=== PATIENT | female | born 1940 | race Caucasian/White ===

== ENCOUNTER 2020-09-21 16:54 | Emergency (ER) | payer MEDICARE, OTHER ==
[~2020-09-21 16:54] MED LIST: Iopamidol-370 76% 500 ML 1 ML ONE
[2020-09-21 18:45] LABS: #Basophils 0.1 thou/uL (0.0-0.2); #Eosinphils 0.2 thou/uL (0.0-0.7); #Lymphocytes 1.9 thou/uL (1.20-3.40); #Monocytes 0.9 thou/uL (0.11-0.59); #Neutrophils 4.6 thou/uL (1.40-6.50); %Basophils 1.1 % (0.0-1.0); %Lymphocytes 24.9 % (21.0-51.0); %Neutrophils 59.9 % (42.0-75.0); Hemoglobin 11.8 g/dL (12.0-16.0); Mean Corpuscular HGB CONC 31.7 g/dL (32.0-36.0); Mean Corpuscular Hemoglobin 26.9 pg (27.0-31.0); Mean Corpuscular Volume 84.8 fL (78.0-98.0); Mean Platelet Volume 6.5 fL (7.4-10.4); Platelet Count 389 thou/uL (130-400); RBC Distribution Width 14.4 % (11.5-14.5); Red Blood Cell (RBC) Count 4.37 mill/uL (4.20-5.40); White Blood Cell (WBC) Count 7.7 thou/uL (4.8-10.8)
[2020-09-21 18:53] LABS: INR-International Normal Ratio 0.9; PTT 30.9 sec (22.9-36.1); Prothrombin Time 12.8 sec (12.0-14.7)
[2020-09-21 19:00] LABS: ALT (SGPT) 7 U/L (8-55); AST (SGOT) 18 U/L (5-34); Albumin 3.6 g/dL (3.4-4.8); Alkaline Phosphatase 49 U/L (40-110); Anion Gap 12 mmol/L (10-20); BUN (Urea Nitrogen) 14 mg/dL (9.8-20.1); Bilirubin, Total 0.2 mg/dL (0.2-1.2); Calc. Creatinine Clearance 0 mL/min (70-130); Calcium 11.6 mg/dL (7.8-10.44); Carbon Dioxide 26 mmol/L (23-31); Chloride 102 mmol/L (98-107); Estimated GFR-MDRD 60; Globulin 3.2 g/dL (2.4-3.5); Glucose 92 mg/dL (83-110); Potassium 4.2 mmol/L (3.5-5.1); Protein, Total 6.8 g/dL (6.0-8.3); Sodium 136 mmol/L (136-145)
[2020-09-21 19:15] LABS: Bacteria/HPF 4+ HPF (None Seen); Bilirubin Negative (Negative); Blood, Urine 3+ (Negative); Clarity Turbid (Clear); Glucose, Urine (Dipstick) Normal (Negative); Ketone, Urine Negative (Negative); Leukocyte 500 Leu/uL (Negative); Nitrite Negative (Negative); Protein, Urine (Dipstick) Negative (Neg-Trace); RBC/HPF 21-50 HPF (0-3); Specific Gravity, Urine 1.005 (1.002-1.036); Squamous Epithelial 0-3 HPF (0-3); Urobilinogen Normal mg/dL (Less than 2); WBC/HPF Greater than 50 HPF (0-3)
[2020-09-21] MEDS ORDERED: cefTRIAXone\\ROCEPHIN 1 GM VIAL ONE (19:43)
--- NOTE | 2020-09-21 19:44 | CT ---
CT ABDOMEN WITH CONTRAST CT PELVIS WITH CONTRAST: DATE: 09/21/2020 HISTORY: 80-year-old female with abdominal pain and bloody diarrhea, plus dysuria and hematuria COMPARISON: 07/31/2020 TECHNIQUE: IV injection of iodinated contrast media: administered. Oral contrast media:Not administered FINDINGS: Moderate dilation of bilateral renal collecting systems and mild to moderate dilation of bilateral pr oximal and mid ureters. In the pelvis, there is severe streak artifact from bilateral total hip replacement arthroplasty meta llic hardware, making it very difficult to visualize the distal ureters and urinary bladder. 4 x 3 x 4 mm calculus remains at right renal lower pole calyx. Small posterior subcapsular hepatic segment 7 right lobe lesion approximately 1.5 cm, unchanged. Hypodense lesion at posterior inferior edge of hepatic segment 6 may represent focal scar. Punctate c alcifications. Unchanged. No portal vein thrombosis. No major pathology identified involving pancreas, adrenals,, or spleen. Appendix not identified with certainty. No small bowel dilation. No definite evidence of colonic diverticulitis, although portions of the sigmoid colon are obscured b y the streak artifact. Multilevel laminectomy defects and posterior onlay bone graft fusion of lumbar spine and lower thorac ic spine. Bilateral pedicle screws at lower thoracic spine and upper lumbar spine. Severe osteopenia. The bilateral pleural effusions demonstrated previously have resolved. No other interval change. IMPRESSION: 1) moderate bilateral hydroureteronephrosis, unchanged 2.) Nephrolithiasis consisting of a single right renal lower pole 4 mm calculus. Unchanged. 3) very limited evaluation of intrapelvic contents because of severe streak artifact from bilateral t otal hip replacement arthroplasty hardware. 4) other than the resolution of the previously demonstrated pleural effusions, there has been no sign ificant interval change.
[2020-09-21] MEDS ORDERED: Vancomycin 1 GM/200 ML BAG ONE (20:16)
== END 2020-09-21 21:53 | disposition home or self-care (01) ==
LOC: ERS 16:54
DX: K52.9 Noninfective gastroenteritis and colitis, unspecified (principal); N39.0 Urinary tract infection, site not specified; D64.9 Anemia, unspecified; K92.1 Melena; I48.91 Unspecified atrial fibrillation; E03.9 Hypothyroidism, unspecified; E78.5 Hyperlipidemia, unspecified; J44.9 Chronic obstructive pulmonary disease, unspecified; N18.9 Chronic kidney disease, unspecified; K21.9 Gastro-esophageal reflux disease without esophagitis; F03.90 Unspecified dementia, unspecified severity, without behavioral disturbance, psychotic disturbance, mood disturbance, and anxiety; Z79.899 Other long term (current) drug therapy; Z79.02 Long term (current) use of antithrombotics/antiplatelets
CPT/HCPCS: 36415; 74177; 80053; 81003; 81015; 85025; 85610; 85730; 86850; 86870; 86900; 86901; 86905; 86922; 87077; 87086; 87186; 87324; 87449; 96365; 96366; 96367; J0696; J3370; Q9967

== ENCOUNTER 2020-11-01 16:46 | Inpatient (IN) | payer MEDICARE ==
[2020-11-01] MEDS ORDERED: Morphine 4 MG/ML VIAL ONE (17:29)
[2020-11-01] MEDS ORDERED: Ondansetron PF 4 MG/2 ML Vial ONE (17:29)
[2020-11-01] MEDS ORDERED: Fentanyl 100 MCG/2 ML VIAL ONE ×2 (17:31→20:51)
[2020-11-01 18:01] LABS: ALT (SGPT) 11 U/L (8-55); AST (SGOT) 17 U/L (5-34); Albumin 3.8 g/dL (3.4-4.8); Alkaline Phosphatase 60 U/L (40-110); Anion Gap 16 mmol/L (10-20); BUN (Urea Nitrogen) 31 mg/dL (9.8-20.1); Bilirubin, Total 0.4 mg/dL (0.2-1.2); Calc. Creatinine Clearance 0 mL/min (70-130); Calcium 11.2 mg/dL (7.8-10.44); Carbon Dioxide 20 mmol/L (23-31); Chloride 105 mmol/L (98-107); Globulin 3.6 g/dL (2.4-3.5); Glucose 105 mg/dL (83-110); Lipase 21 U/L (8-78); Potassium 4.1 mmol/L (3.5-5.1); Protein, Total 7.4 g/dL (6.0-8.3); Sodium 137 mmol/L (136-145)
[2020-11-01 18:30] LABS: Bacteria/HPF 4+ HPF (None Seen); Bilirubin Negative (Negative); Blood, Urine 3+ (Negative); Clarity Extra Turbid (Clear); Glucose, Urine (Dipstick) Normal (Negative); Ketone, Urine Negative (Negative); Leukocyte 500 Leu/uL (Negative); Nitrite 2+ (Negative); Protein, Urine (Dipstick) 50 mg/dL (Neg-Trace); RBC/HPF Greater than 50 HPF (0-3); Specific Gravity, Urine 1.014 (1.002-1.036); Squamous Epithelial None Seen HPF (0-3); Urobilinogen Normal mg/dL (Less than 2); WBC/HPF Greater than 50 HPF (0-3)
[2020-11-01 19:19] LABS: #Eosinphils 0.1 thou/uL (0.0-0.7); #Lymphocytes 1.4 thou/uL (1.20-3.40); #Monocytes 1.1 thou/uL (0.11-0.59); #Neutrophils 14.8 thou/uL (1.40-6.50); %Basophils 0.2 % (0.0-1.0); %Eosinophils 0.6 % (0.0-10.0); %Lymphocytes 7.8 % (21.0-51.0); %Monocytes 6.3 % (0.0-10.0); %Neutrophils 85.2 % (42.0-75.0); Hemoglobin 11.4 g/dL (12.0-16.0); Mean Corpuscular HGB CONC 32.3 g/dL (32.0-36.0); Mean Corpuscular Hemoglobin 26.9 pg (27.0-31.0); Mean Corpuscular Volume 83.3 fL (78.0-98.0); Mean Platelet Volume 6.6 fL (7.4-10.4); Platelet Count 591 thou/uL (130-400); RBC Distribution Width 13.7 % (11.5-14.5); Red Blood Cell (RBC) Count 4.25 mill/uL (4.20-5.40); White Blood Cell (WBC) Count 17.4 thou/uL (4.8-10.8)
[2020-11-01] MEDS ORDERED: Acetaminophen 650 MG Suppository PR PRN (20:00)
[2020-11-01] MEDS ORDERED: Ondansetron ODT 4 MG TAB PO PRN (20:00)
[2020-11-01] MEDS ORDERED: Calcium Carbonate 500 MG ChewTAB PO PRN (20:00)
--- NOTE | 2020-11-01 20:04 | PDOC.HHP ---
Hospitalist HPI - History of Present Illness nause / vomting History of Present Illness: Case of an 80y/o female residential resident with a pmhx of dementia, htn, hypothyroidism, s/p ppm and hld who comes to hospital due to nausea vomiting and altered mental state. apparently patient was on her usuals state of health until today when while she was on her f/u appointment with her urologist. apparently s he started vomiting and with an altered stated for which she was brought to hospital for evaluation. patient states shes does not remember event, states she remembers going to see her doctor then now is on the hospital. of note patient with a recent admission with similar presentation that required vasoppresors and icu admission. patient was diagnosed with sepsis sescondary to uti and hospitalist was called for further evaluation and management. Hospitalist ROS - Review of Systems All other systems reviewed; all pertinent +/- noted in HPI/Subj Hospitalist History - Past Surgical History Past Surgical History: reports: no pertinent history - Family History Family History: reports: no pertinent history - Social History Smoking Status: Former smoker Alcohol: reports: None Drugs: reports: none Living Situation: Care Home - Exam General Appearance: NAD, awake alert Eye: PERRL, anicteric sclera ENT: normocephalic atraumatic, no oropharyngeal lesions Neck: supple, symmetric, no JVD Heart: RRR, no murmur, no gallops, no rubs Respiratory: CTAB, no wheezes, no rales Gastrointestinal: soft, non-tender, non-distended Extremities: no cyanosis, no clubbing Skin: normal turgor, no lesions Neurological: cranial nerve grossly intact, normal sensation to touch Musculoskeletal: normal tone, normal strength Psychiatric: normal affect, normal behavior, A&O x 3 Hospitalist Results - Labs Result Diagrams: 11/01/20 17:28 11/01/20 17:19 Lab results: WBC 17.4 thou/uL (4.8-10.8) H 11/01/20 17:28 Hgb 11.4 g/dL (12.0-16.0) L 11/01/20 17:28 Hct 35.4 % (36.0-47.0) L 11/01/20 17:28 MCV 83.3 fL (78.0-98.0) 11/01/20 17:28 Plt Count 591 thou/uL (130-400) H 11/01/20 17:28 Neutrophils % 85.2 % (42.0-75.0) H 11/01/20 17:28 Sodium 137 mmol/L (136-145) 11/01/20 17:19 Potassium 4.1 mmol/L (3.5-5.1) 11/01/20 17:19 Chloride 105 mmol/L (98-107) 11/01/20 17:19 Carbon Dioxide 20 mmol/L (23-31) L 11/01/20 17:19 BUN 31 mg/dL (9.8-20.1) H 11/01/20 17:19 Creatinine 1.51 mg/dL (0.6-1.1) H 11/01/20 17:19 Glucose 105 mg/dL (83-110) 11/01/20 17:19 Calcium 11.2 mg/dL (7.8-10.44) H 11/01/20 17:19 Total Bilirubin 0.4 mg/dL (0.2-1.2) 11/01/20 17:19 AST 17 U/L (5-34) 11/01/20 17:19 ALT 11 U/L (8-55) 11/01/20 17:19 Alkaline Phosphatase 60 U/L (40-110) 11/01/20 17:19 Troponin I 0.023 ng/mL (< 0.028) 11/01/20 17:22 Serum Total Protein 7.4 g/dL (6.0-8.3) 11/01/20 17:19 Albumin 3.8 g/dL (3.4-4.8) 11/01/20 17:19 Lipase 21 U/L (8-78) 11/01/20 17:19 Urine Ketones Negative mg/dL (Negative) 11/01/20 17:56 Urine Blood 3+ (Negative) A 11/01/20 17:56 Urine Nitrite 2+ (Negative) A 11/01/20 17:56 Ur Leukocyte Esterase 500 Lenard/uL (Negative) A 11/01/20 17:56 Urine RBC Greater than 50 HPF (0-3) A 11/01/20 17:56 Urine WBC Greater than 50 HPF (0-3) A 11/01/20 17:56 Ur Squamous Epith Cells None Seen HPF (0-3) 11/01/20 17:56 Urine Bacteria 4+ HPF (None Seen) A 11/01/20 17:56 Hospitalist H&P A/P - Problem (1) Sepsis Code(s): A41.9 - SEPSIS, UNSPECIFIED ORGANISM Status: Acute (2) UTI (urinary tract infection) Status: Acute (3) Hyperlipidemia Code(s): E78.5 - HYPERLIPIDEMIA, UNSPECIFIED Status: Acute (4) Hypertension Code(s): I10 - ESSENTIAL (PRIMARY) HYPERTENSION Status: Acute (5) Hypothyroid Code(s): E03.9 - HYPOTHYROIDISM, UNSPECIFIED Status: Chronic - Plan Plan: case of an 80y/o female that presents to hospital due to sepsis secondary to uti sepsis / uti - elevated wbc + tachycardia + altered mental state with a u/a consistent with uti - on levaquin iv - f/u cultures - last admission, recent, similar presentation grew pseudomona suceptible to current tx htn / hypothyroidism / hld - continue home meds
--- NOTE | 2020-11-01 20:38 | CT ---
HEAD CT WITHOUT CONTRAST: 11/01/20 COMPARISON: None. HISTORY: Altered mental status, vomiting. TECHNIQUE: Axial CT imaging at 5 mm intervals from vertex through the skull base without contrast. FINDINGS: There is encephalomalacia within the deep white matter in the right frontal region as well as the pos terior inferior right frontal and anterior right temporal lobe suggesting an old right MCA infarction . The imaged paranasal sinuses and mastoid air cells are well aerated. There is no displaced calvaria l fracture, intracranial hemorrhage, midline shift or mass effect. IMPRESSION: Evidence of prior right MCA infarction. No intracranial hemorrhage. If there is clinical concern for acute infarction, follow-up brain MRI advised. POS: ODALIS
--- NOTE | 2020-11-01 22:03 | CT ---
CT ABDOMEN AND PELVIS WITH IV CONTRAST: 11/01/20 PROVIDED CLINICAL HISTORY: Abdominal pain. FINDINGS: Comparison is made with the study dated 09/21/20. The visualized lung bases are free of significant opacity. Bilateral hydronephrosis and bilateral hydroureter are redemonstrated. The distal most ureters and ur inary bladder as well as the remainder of low pelvic contents are obscured by beam hardening artifact from bilateral hip arthroplasties. The solid abdominal organs demonstrate no significant interval ch jace with respect to prior. There is fluid density throughout the colon, which can be seen in the setting of diarrheal illness. T here is no evidence for bowel obstruction. The appendix is not distinctly identified, without seconda ry evidence for appendicitis. No inflammatory fat stranding, free fluid or free air apparent. The osseous structures demonstrate no concerning lytic or blastic lesions. Extensive spinal postopera tive changes are redemonstrated, stable compared with prior. IMPRESSION: 1. Bilateral hydroureteronephrosis is unchanged with respect to prior. 2. Fluid density within the colon, which can be seen in the setting of a diarrheal illness. POS: COLLETTE
--- NOTE | 2020-11-01 22:14 | RAD ---
PORTABLE CHEST: 11/01/20 PROVIDED CLINICAL HISTORY: Shortness of breath and vomiting. FINDINGS: Comparison 07/31/20. The cardiac and mediastinal silhouette is within normal limits. Atherosclerosis and left subclavian cardiac pacing device are demonstrated. No focal consolidation, pleural fluid or pneumothorax apparen t. IMPRESSION: No evidence for an acute cardiopulmonary process. POS: COLLETTE
[2020-11-02] MEDS: Fenofibrate 48 MG TAB PO SCH ×2 (00:14→21:31)
[2020-11-02] MEDS: Atorvastatin Calcium 40 MG TAB PO SCH ×2 (00:14→21:31)
[2020-11-02 04:19] LABS: Band 1 % (5-11); Hypochromia SLIGHT = 6-15 cells (100X) (0-5/hpf); Lymphocytes 10 % (21-51); MDiff Complete? YES; Mean Corpuscular HGB CONC 32.7 g/dL (32.0-36.0); Mean Corpuscular Hemoglobin 27.2 pg (27.0-31.0); Mean Corpuscular Volume 83.1 fL (78.0-98.0); Mean Platelet Volume 6.6 fL (7.4-10.4); Monocytes 2 % (0-10); Neutrophil 86 % (42-75); Platelet Count 452 thou/uL (130-400); Platelet Morphology Comment Appears Increased; RBC Distribution Width 13.7 % (11.5-14.5); Reactive Lymphocytes 1 % (0-10); Red Blood Cell (RBC) Count 3.68 mill/uL (4.20-5.40); White Blood Cell (WBC) Count 18.1 thou/uL (4.8-10.8)
[2020-11-02 04:23] LABS: ALT (SGPT) 13 U/L (8-55); AST (SGOT) 37 U/L (5-34); Albumin 2.7 g/dL (3.4-4.8); Alkaline Phosphatase 45 U/L (40-110); Anion Gap 18 mmol/L (10-20); BUN (Urea Nitrogen) 22 mg/dL (9.8-20.1); Bilirubin, Total 0.5 mg/dL (0.2-1.2); Calc. Creatinine Clearance 0 mL/min (70-130); Carbon Dioxide 10 mmol/L (23-31); Chloride 113 mmol/L (98-107); Globulin 3.5 g/dL (2.4-3.5); Glucose 84 mg/dL (83-110); Potassium 4.1 mmol/L (3.5-5.1); Protein, Total 6.2 g/dL (6.0-8.3); Sodium 137 mmol/L (136-145)
[2020-11-02 04:26] VITALS: BMI 21.2
--- NOTE | 2020-11-02 08:52 | PDOC.HOSPP ---
- Subjective Encounter Date: 11/02/20 Encounter Time: 08:40 Subjective: f/u for UTI/Sepsis on current Levaquin. Ucx pending and nursing reports pt stable overnight. Pt states feeling better overall and less confused. - Objective Vital Signs & Weight: Vital Signs (12 hours) Temp Pulse Resp BP BP Pulse Ox 11/02/20 03:54 98.9 F 95 14 116/56 L 96 11/02/20 03:18 96 11/01/20 23:56 99.9 F H 116 H 16 111/55 L 96 11/01/20 22:15 98.4 F 102 H 22 H 143/61 H 98 Weight Weight 124 lb I&O: 11/01/20 11/02/20 11/03/20 06:59 06:59 06:59 Intake Total 240 Output Total 300 Balance -60 Result Diagrams: 11/02/20 03:52 11/02/20 03:52 Additional Labs: Microbiology 11/01/20 20:15 Venous blood - Left Hand Blood Culture - Preliminary Specimen has been received and culture in progress. No Growth to date. 11/01/20 20:02 Venous blood - Left Arm Blood Culture - Preliminary Specimen has been received and culture in progress. No Growth to date. Laboratory Tests 11/01/20 11/01/20 17:19 17:28 WBC 17.4 H Hgb 11.4 L BUN 31 H Creatinine 1.51 H Calcium 11.2 H Radiology Reviewed by me: Yes (CT abd/pel - bilat hydroureteronephrosis(chronic)) Hospitalist ROS - Medication Medications: Active Medications Generic Name Dose Route Start Last Admin Trade Name Freq PRN Reason Stop Dose Admin Atorvastatin Calcium 40 mg 11/01/20 21:00 11/02/20 00:14 Atorvastatin Calcium 40 Mg Tab PO 40 mg HS REGINA Administration Fenofibrate 48 mg 11/01/20 21:00 11/02/20 00:14 Fenofibrate 48 Mg Tab PO 48 mg HS REGINA Administration - Exam General Appearance: NAD, awake alert Eye: PERRL, anicteric sclera ENT: normocephalic atraumatic, no oropharyngeal lesions Neck: supple, symmetric, no JVD, no thyromegaly, no lymphadenopathy Heart: RRR, no gallops, no rubs, normal peripheral pulses Heart - other findings: S1, S2 Respiratory: CTAB, no wheezes, no rales, no ronchi, normal chest expansion, no tachypnea Gastrointestinal: soft, non-tender, non-distended, normal bowel sounds, no palpable masses Extremities: no cyanosis, no clubbing, no edema Skin: normal turgor, no lesions Neurological: cranial nerve grossly intact, no new deficit Musculoskeletal: normal tone, generalized weakness Psychiatric: normal affect, A&O x 3 Hosp A/P (1) Sepsis due to urinary tract infection Code(s): A41.9 - SEPSIS, UNSPECIFIED ORGANISM; N39.0 - URINARY TRACT INFECTION, SITE NOT SPECIFIED Status: Acute Plan: Continue Levaquin, add Rocephin pending final Ucx results, continue IVF's (2) HANNA (acute kidney injury) Code(s): N17.9 - ACUTE KIDNEY FAILURE, UNSPECIFIED Status: Acute Plan: Improved, continue IVF's, avoid nephrotoxic meds and limit contrast (3) Acute metabolic encephalopathy Code(s): G93.41 - METABOLIC ENCEPHALOPATHY Status: Acute Plan: Secondary to #1, continue mgmt as outlined above (4) Hypercalcemia Code(s): E83.52 - HYPERCALCEMIA Status: Acute Plan: Improved, continue IVF's, serial Ca++ monitoring (5) Hypothyroid Code(s): E03.9 - HYPOTHYROIDISM, UNSPECIFIED Status: Chronic - 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
[2020-11-02] MEDS ORDERED: Bisacodyl 10 MG SUPP PR PRN (08:56)
[2020-11-02] MEDS ORDERED: Benzonatate 100 MG CAP PO PRN (08:56)
[2020-11-02] MEDS ORDERED: LIDOCAINE TOP SCH (09:00)
[2020-11-02] MEDS: Sodium Chloride 0.9% 1,000 ML IV SCH ×2 (09:33→19:19)
[2020-11-02] MEDS: Clopidogrel Bisulfate 75 MG TAB PO SCH (09:40)
[2020-11-02] MEDS: Lactinex Tablet PO SCH (09:40)
[2020-11-02] MEDS: Enoxaparin Sodium 40 MG/0.4 ML SYRINGE SC SCH (09:40)
[2020-11-02] MEDS: Magnesium Oxide 400 MG TAB PO SCH ×2 (09:40→21:30)
[2020-11-02] MEDS: Escitalopram Oxalate 10 mg Tablet PO SCH (09:40)
[2020-11-02] MEDS: cefTRIAXone\\ROCEPHIN 2 GM in Sodium Chloride 0.9% 100 ML IVPB SCH (09:40)
[2020-11-02] MEDS: Cholecalciferol 1,000 UNITS (25 MCG) TAB PO SCH (09:52)
[2020-11-02] MEDS: Stress 600 With Zinc 1 TAB PO SCH (09:56)
[2020-11-02] MEDS: Gabapentin 300 MG CAP PO SCH ×2 (10:06→21:30)
[2020-11-02 12:52] LABS: SARS-CoV-2 MS2 Positive; SARS-CoV-2 N Gene Negative; SARS-CoV-2 S Gene Negative; SARS-CoV-2 by NAA Not Detected (NotDetected); SARS-CoV-2 orf1ab Negative
[2020-11-02] MEDS: Zinc Oxide 20% Oint 30 GM TUBE TOP SCH ×2 (14:00→21:31)
[2020-11-02] MEDS: Meloxicam 15 MG TAB PO SCH (14:14)
--- NOTE | 2020-11-02 15:21 | CON ---
DATE OF CONSULTATION: REASON FOR CONSULT: Hydronephrosis. CHIEF COMPLAINT: Vomiting. HISTORY OF PRESENT ILLNESS: This is an 80-year-old female, well known to me. She has a history of recurrent urinary tract infections, urinary retention with hydronephrosis secondary to this. She is currently staying at a nursing facility. Over the past several months, we have had problems with her wanting to have her catheter removed. It being removed and then her ending up with infections, retention, hydronephrosis. She was seen in my office yesterday after she reportedly developed a single episode of gross hematuria. She was not having any hematuria yesterday. Our bladder scan suggested that she was emptying well with 79 mL residual. She was having active vomiting, however, and I recommended that she be sent to the emergency room. Urine culture had been checked earlier in the week, but results were not yet available. In the emergency room, she was evaluated and noted to have urinary tract infection and a CT shows bilateral hydronephrosis. In speaking with her today, she tells me that she is feeling much better. She denies suprapubic pain, flank pain, nausea, fevers. REVIEW OF SYSTEMS: 12-point review of systems is performed, negative except as mentioned in my HPI. PAST MEDICAL HISTORY: Dementia, hypertension, hypothyroidism. PAST SURGICAL HISTORY: No prior urologic surgeries. FAMILY HISTORY: Reviewed, noncontributory. SOCIAL HISTORY: Former smoker. No substance abuse. ALLERGIES: REVIEWED. PERTINENT ALLERGIES ARE DOXYCYCLINE, PENICILLIN, SULFADIAZINE. LABORATORY DATA: White count 18.1, 17.4 yesterday. Creatinine 1.06 today, down from 1.51 yesterday. Urinalysis, positive nitrite and leukocyte esterase. COVID negative. Urine culture, presumptive Klebsiella/Enterobacter. I personally reviewed her CT scan, which does show bilateral hydronephrosis and appears to show a distended bladder. However, it is mostly obstructed by her bilateral hip prosthetics. ASSESSMENT AND PLAN: Urinary retention, urinary tract infection, bilateral hydronephrosis. Miller catheter was placed at my direction earlier today. She will need this likely long term. I would not recommend this be removed again. I agree with Rocephin and Levaquin for now while we await urine susceptibilities. As long as her creatinine remains improved with the Miller catheter, I do not think there is any issue with bilateral hydronephrosis. Further corroborating my impression is that she has previously developed hydronephrosis with retention, which promptly resolved with catheter placement. Job ID: [id number]
[2020-11-02] MEDS: Potassium Chloride 20 MEQ TAB PO SCH (17:00)
[2020-11-02] MEDS: Diphenoxylate HCl/Atropine Tablet PO PRN (17:03)
[2020-11-02] MEDS: Acetaminophen 325 MG TAB PO PRN (17:04)
[2020-11-02] MEDS ORDERED: Polyvinyl Alcohol 1.4%/Povidone 0.6% Opth Drops EA EYE SCH (21:00)
[2020-11-03] MEDS: Sodium Chloride 0.9% 1,000 ML IV SCH ×3 (00:11→13:32)
[2020-11-03] MEDS ORDERED: Artificial Tear Sol 15 ML BOT EA EYE SCH (00:15)
[2020-11-03] MEDS: Methocarbamol 500 MG TAB PO PRN (02:52)
[2020-11-03] MEDS: Liothyronine Sodium 5 MCG TAB PO SCH (06:11)
[2020-11-03] MEDS: Levothyroxine Sodium 25 MCG TAB PO SCH (06:11)
[2020-11-03] MEDS: Zinc Oxide 20% Oint 30 GM TUBE TOP SCH ×3 (06:12→20:39)
[2020-11-03 06:42] LABS: #Basophils 0.1 thou/uL (0.0-0.2); #Eosinphils 0.1 thou/uL (0.0-0.7); #Lymphocytes 1.2 thou/uL (1.20-3.40); #Monocytes 0.9 thou/uL (0.11-0.59); #Neutrophils 6.9 thou/uL (1.40-6.50); %Basophils 0.7 % (0.0-1.0); %Eosinophils 0.7 % (0.0-10.0); %Lymphocytes 12.9 % (21.0-51.0); %Monocytes 10.2 % (0.0-10.0); %Neutrophils 75.5 % (42.0-75.0); Hemoglobin 8.3 g/dL (12.0-16.0); Mean Corpuscular HGB CONC 32.2 g/dL (32.0-36.0); Mean Corpuscular Hemoglobin 26.6 pg (27.0-31.0); Mean Corpuscular Volume 82.4 fL (78.0-98.0); Mean Platelet Volume 6.3 fL (7.4-10.4); Platelet Count 422 thou/uL (130-400); RBC Distribution Width 13.5 % (11.5-14.5); Red Blood Cell (RBC) Count 3.12 mill/uL (4.20-5.40); White Blood Cell (WBC) Count 9.1 thou/uL (4.8-10.8)
[2020-11-03 07:01] LABS: Anion Gap 14 mmol/L (10-20); BUN (Urea Nitrogen) 12 mg/dL (9.8-20.1); Calc. Creatinine Clearance 53 mL/min (70-130); Calcium 9.8 mg/dL (7.8-10.44); Carbon Dioxide 16 mmol/L (23-31); Chloride 112 mmol/L (98-107); Glucose 86 mg/dL (83-110); Sodium 139 mmol/L (136-145)
[2020-11-03 07:09] LABS: Potassium 2.7 mmol/L (3.5-5.1)
[2020-11-03] MEDS ORDERED: Potassium Chloride 20 MEQ TAB PO SCH (08:45)
[2020-11-03] MEDS: Acetaminophen 325 MG TAB PO PRN (08:57)
[2020-11-03] MEDS: Meloxicam 15 MG TAB PO SCH (08:58)
[2020-11-03] MEDS: Artificial Tear Sol 15 ML BOT EA EYE SCH ×2 (09:39→20:38)
[2020-11-03] MEDS: Enoxaparin Sodium 40 MG/0.4 ML SYRINGE SC SCH (09:39)
[2020-11-03] MEDS: Potassium Chloride 20 MEQ TAB PO SCH ×2 (09:40→17:45)
[2020-11-03] MEDS: Stress 600 With Zinc 1 TAB PO SCH (09:40)
[2020-11-03] MEDS: Gabapentin 300 MG CAP PO SCH ×2 (09:40→20:37)
[2020-11-03] MEDS: Escitalopram Oxalate 10 mg Tablet PO SCH (09:41)
[2020-11-03] MEDS: Clopidogrel Bisulfate 75 MG TAB PO SCH (09:41)
[2020-11-03] MEDS: Cholecalciferol 1,000 UNITS (25 MCG) TAB PO SCH (09:41)
[2020-11-03] MEDS: Magnesium Oxide 400 MG TAB PO SCH ×2 (09:42→20:38)
[2020-11-03] MEDS: Lactinex Tablet PO SCH (09:43)
[2020-11-03] MEDS: cefTRIAXone\\ROCEPHIN 2 GM in Sodium Chloride 0.9% 100 ML IVPB SCH (10:52)
--- NOTE | 2020-11-03 11:56 | PDOC.HOSPP ---
- Subjective Encounter Date: 11/03/20 Encounter Time: 11:45 Subjective: f/u for UTI/sepsis with Klebsiella spp isolated receiving Levaquin/Rocephin. Overall feels better. Nursing reports K+ 2.7 today. - Objective Vital Signs & Weight: Vital Signs (12 hours) Temp Pulse Resp BP BP Pulse Ox 11/03/20 08:00 99.2 F 74 20 125/65 97 11/03/20 04:00 99.5 F 90 20 119/55 L 94 L Weight Weight 124 lb I&O: 11/02/20 11/03/20 11/04/20 06:59 06:59 06:59 Intake Total 240 200 Output Total 300 700 Balance -60 -500 Result Diagrams: 11/03/20 06:24 11/03/20 06:24 Additional Labs: Microbiology 11/02/20 19:48 Stool C. difficile GDH Antigen & Toxins - Final 11/01/20 20:15 Venous blood - Left Hand Blood Culture - Preliminary Specimen has been received and culture in progress. No Growth to date. 11/01/20 20:02 Venous blood - Left Arm Blood Culture - Preliminary Specimen has been received and culture in progress. No Growth to date. 11/01/20 17:56 Urine Straight Catheter Urine Culture - Preliminary Klebsiella pneumoniae ssp pneu Laboratory Tests 11/01/20 11/01/20 11/02/20 17:19 17:28 03:52 WBC 17.4 H Hgb 11.4 L Potassium 4.1 BUN 31 H Creatinine 1.51 H 1.06 Calcium 11.2 H SARS-CoV-2 (PCR) 11/02/20 11/02/20 03:52 06:35 WBC 18.1 H Hgb 10.0 L Potassium BUN Creatinine Calcium SARS-CoV-2 (PCR) Not Detected Hospitalist ROS - Medication Medications: Active Medications Generic Name Dose Route Start Last Admin Trade Name Freq PRN Reason Stop Dose Admin Acetaminophen 650 mg 11/01/20 20:00 11/03/20 08:57 Acetaminophen 325 Mg Tab PO 650 mg Q4H PRN Administration Headache/Fever/Mild Pain (1-3) Acidophilus 1 tab 11/02/20 09:00 11/03/20 09:43 Lactinex Tablet PO 1 tab DAILY REGINA Administration Artificial Tears 0 drop 11/03/20 09:00 11/03/20 09:39 Artificial Tear Marley 15 Ml Bot EA EYE 1 drp BID REGINA Administration Atorvastatin Calcium 40 mg 11/01/20 21:00 11/02/20 21:31 Atorvastatin Calcium 40 Mg Tab PO 40 mg HS REGINA Administration Cholecalciferol 5,000 units 11/02/20 09:00 11/03/20 09:41 Cholecalciferol 1,000 Units (25 Mcg) Tab PO 5,000 units DAILY REGINA Administration Clopidogrel Bisulfate 75 mg 11/02/20 09:00 11/03/20 09:41 Clopidogrel Bisulfate 75 Mg Tab PO 75 mg DAILY REGINA Administration Diphenoxylate HCl/Atropine 1 tab 11/02/20 08:56 11/02/20 17:03 Diphenoxylate Hcl/Atropine Tablet PO 1 tab QID PRN Administration Diarrhea/Loose Stools Enoxaparin Sodium 40 mg 11/02/20 09:00 11/03/20 09:39 Enoxaparin Sodium 40 Mg/0.4 Ml Syringe SC 40 mg 0900 REGINA Administration Escitalopram Oxalate 10 mg 11/02/20 09:00 11/03/20 09:41 Escitalopram Oxalate 10 Mg Tablet PO 10 mg DAILY REGINA Administration Fenofibrate 48 mg 11/01/20 21:00 11/02/20 21:31 Fenofibrate 48 Mg Tab PO 48 mg HS REGINA Administration Gabapentin 600 mg 11/02/20 09:00 11/03/20 09:40 Gabapentin 300 Mg Cap PO 600 mg BID REGINA Administration Sodium Chloride 1,000 mls @ 100 mls/hr 11/02/20 09:00 11/03/20 10:36 Normal Saline 0.9% IV 1,000 mls .Q10H REGINA Administration Ceftriaxone Sodium 2 gm/ 100 mls @ 200 mls/hr 11/02/20 10:00 11/03/20 10:52 Sodium Chloride IVPB 100 mls 1000 REGINA Administration Isosorbide Mononitrate 15 mg 11/02/20 09:00 11/03/20 09:42 Isosorbide Mononitrate Er 30 Mg Tab PO 15 mg DAILY REGINA Administration Levothyroxine Sodium 25 mcg 11/03/20 06:00 11/03/20 06:11 Levothyroxine Sodium 25 Mcg Tab PO 25 mcg 0600 REGINA Administration Liothyronine Sodium 5 mcg 11/03/20 06:00 01/01/21 06:11 Liothyronine Sodium 5 Mcg Tab PO 5 mcg 0600 REGINA Administration Magnesium Oxide 400 mg 11/02/20 09:00 11/03/20 09:42 Magnesium Oxide 400 Mg Tab PO 400 mg BID REGINA Administration Meloxicam 15 mg 11/02/20 09:00 11/03/20 08:58 Meloxicam 15 Mg Tab PO 15 mg DAILY REGINA Administration Methocarbamol 750 mg 11/02/20 09:22 11/03/20 02:52 Methocarbamol 500 Mg Tab PO 750 mg Q8H PRN Administration Muscle Pain Multivitamins/Zinc 1 tab 11/02/20 09:00 11/03/20 09:40 Stress 600 With Zinc 1 Tab PO 1 tab DAILY REGINA Administration Potassium Chloride 20 meq 11/02/20 17:00 11/03/20 09:40 Potassium Chloride 20 Meq Tab PO 20 meq BID-WM REGINA Administration Zinc Oxide 0 gm 11/02/20 14:00 11/03/20 06:12 Zinc Oxide 20% Oint 30 Gm Tube TOP 1 applic Q8HR REGINA Administration - Exam General Appearance: NAD, awake alert Eye: PERRL, anicteric sclera ENT: normocephalic atraumatic, no oropharyngeal lesions Neck: supple, symmetric, no JVD, no thyromegaly, no lymphadenopathy Heart: RRR, no gallops, no rubs, normal peripheral pulses Heart - other findings: S1, S2 Respiratory: CTAB, no wheezes, no rales, no ronchi, normal chest expansion, no tachypnea Gastrointestinal: soft, non-tender, non-distended, normal bowel sounds, no palpable masses Extremities: no cyanosis, no clubbing, no edema Skin: normal turgor, no lesions Neurological: cranial nerve grossly intact, no new deficit Musculoskeletal: normal tone, generalized weakness Psychiatric: normal affect, A&O x 3 Hosp A/P (1) Sepsis due to urinary tract infection Code(s): A41.9 - SEPSIS, UNSPECIFIED ORGANISM; N39.0 - URINARY TRACT INFECTION, SITE NOT SPECIFIED Status: Acute Plan: Resolving, continue Levaquin for Klebsiella spp UTI (2) HANNA (acute kidney injury) Code(s): N17.9 - ACUTE KIDNEY FAILURE, UNSPECIFIED Status: Acute Plan: Resolving, avoid nephrotoxic meds and limit contrast (3) Acute metabolic encephalopathy Code(s): G93.41 - METABOLIC ENCEPHALOPATHY Status: Acute Plan: Resolving (4) Hypercalcemia Code(s): E83.52 - HYPERCALCEMIA Status: Acute Plan: Resolving (5) Hypothyroid Code(s): E03.9 - HYPOTHYROIDISM, UNSPECIFIED Status: Chronic - 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
[2020-11-03] MEDS: Ondansetron PF 4 MG/2 ML Vial IVP PRN (19:04)
[2020-11-03] MEDS: Atorvastatin Calcium 40 MG TAB PO SCH (20:38)
[2020-11-03] MEDS: Fenofibrate 48 MG TAB PO SCH (20:38)
[2020-11-03] MEDS ORDERED: Melatonin 3 MG TAB PO PRN (22:22)
[2020-11-03] MEDS: Melatonin 3 MG TAB PO PRN (23:44)
[2020-11-03] MEDS: Diphenoxylate HCl/Atropine Tablet PO PRN (23:44)
[2020-11-03] MEDS: Melatonin/Pyridoxine [Melatonin 5 Mg Tablet] PO SCH (23:45)
[2020-11-04] MEDS: Sodium Chloride 0.9% 1,000 ML IV SCH ×2 (01:30→08:48)
[2020-11-04 04:53] LABS: #Eosinphils 0.3 thou/uL (0.0-0.7); #Lymphocytes 1.2 thou/uL (1.20-3.40); #Monocytes 0.7 thou/uL (0.11-0.59); #Neutrophils 4.7 thou/uL (1.40-6.50); %Basophils 0.7 % (0.0-1.0); %Eosinophils 3.7 % (0.0-10.0); %Lymphocytes 17.8 % (21.0-51.0); %Monocytes 9.4 % (0.0-10.0); %Neutrophils 68.3 % (42.0-75.0); Hemoglobin 8.4 g/dL (12.0-16.0); Mean Corpuscular HGB CONC 32.9 g/dL (32.0-36.0); Mean Corpuscular Hemoglobin 27.4 pg (27.0-31.0); Mean Corpuscular Volume 83.1 fL (78.0-98.0); Mean Platelet Volume 6.5 fL (7.4-10.4); Platelet Count 406 thou/uL (130-400); RBC Distribution Width 13.4 % (11.5-14.5); Red Blood Cell (RBC) Count 3.08 mill/uL (4.20-5.40); White Blood Cell (WBC) Count 6.8 thou/uL (4.8-10.8)
[2020-11-04 05:23] LABS: Anion Gap 12 mmol/L (10-20); BUN (Urea Nitrogen) 8 mg/dL (9.8-20.1); Calc. Creatinine Clearance 58 mL/min (70-130); Calcium 9.4 mg/dL (7.8-10.44); Carbon Dioxide 15 mmol/L (23-31); Chloride 113 mmol/L (98-107); Glucose 84 mg/dL (83-110); Potassium 3.4 mmol/L (3.5-5.1); Sodium 137 mmol/L (136-145)
[2020-11-04] MEDS: Zinc Oxide 20% Oint 30 GM TUBE TOP SCH ×3 (05:52→20:00)
[2020-11-04] MEDS: Levothyroxine Sodium 25 MCG TAB PO SCH (05:52)
[2020-11-04] MEDS: Liothyronine Sodium 5 MCG TAB PO SCH (05:52)
[2020-11-04] MEDS: Ondansetron PF 4 MG/2 ML Vial IVP PRN ×2 (08:48→16:42)
[2020-11-04] MEDS: Cholecalciferol 1,000 UNITS (25 MCG) TAB PO SCH (08:50)
[2020-11-04] MEDS: Potassium Chloride 20 MEQ TAB PO SCH ×2 (08:51→15:37)
[2020-11-04] MEDS: Escitalopram Oxalate 10 mg Tablet PO SCH (08:53)
[2020-11-04] MEDS: Stress 600 With Zinc 1 TAB PO SCH (08:54)
[2020-11-04] MEDS: Lactinex Tablet PO SCH (08:54)
[2020-11-04] MEDS: Magnesium Oxide 400 MG TAB PO SCH ×2 (08:54→20:00)
[2020-11-04] MEDS: Clopidogrel Bisulfate 75 MG TAB PO SCH (08:54)
[2020-11-04] MEDS: Gabapentin 300 MG CAP PO SCH ×2 (08:54→20:00)
[2020-11-04] MEDS: Enoxaparin Sodium 40 MG/0.4 ML SYRINGE SC SCH (08:55)
[2020-11-04] MEDS: Diphenoxylate HCl/Atropine Tablet PO PRN ×2 (09:10→21:01)
[2020-11-04] MEDS: Meloxicam 15 MG TAB PO SCH (09:19)
--- NOTE | 2020-11-04 14:35 | PDOC.HOSPP ---
- Subjective Encounter Date: 11/04/20 Encounter Time: 11:20 Subjective: pt up in bed no complains - Objective Vital Signs & Weight: Vital Signs (12 hours) Temp Pulse Resp BP Pulse Ox 11/04/20 06:51 98.6 F 78 16 125/60 95 Weight Admit Weight 124 lb Weight 124 lb I&O: 11/03/20 11/04/20 11/05/20 06:59 06:59 06:59 Intake Total 200 2865 Output Total 700 700 Balance -500 2165 Result Diagrams: 11/04/20 03:48 11/04/20 03:48 Hospitalist ROS - Review of Systems Cardiovascular: denies: chest pain, palpitations, orthopnea, paroxysmal noc. dyspnea, edema, light headedness, other Gastrointestinal: denies: nausea, vomiting, abdominal pain, diarrhea, constipation, melena, hematochezia, other Genitourinary: denies: dysuria, frequency, incontinence, hematuria, retention, other - Medication Medications: Active Medications Generic Name Dose Route Start Last Admin Trade Name Freq PRN Reason Stop Dose Admin Acetaminophen 650 mg 11/01/20 20:00 11/03/20 08:57 Acetaminophen 325 Mg Tab PO 650 mg Q4H PRN Administration Headache/Fever/Mild Pain (1-3) Acidophilus 1 tab 11/02/20 09:00 11/04/20 08:54 Lactinex Tablet PO 1 tab DAILY REGINA Administration Artificial Tears 0 drop 11/03/20 09:00 11/03/20 20:38 Artificial Tear Marley 15 Ml Bot EA EYE 1 drp BID REGINA Administration Atorvastatin Calcium 40 mg 11/01/20 21:00 11/03/20 20:38 Atorvastatin Calcium 40 Mg Tab PO 40 mg HS REGINA Administration Cholecalciferol 5,000 units 11/02/20 09:00 11/04/20 08:50 Cholecalciferol 1,000 Units (25 Mcg) Tab PO 5,000 units DAILY REGINA Administration Clopidogrel Bisulfate 75 mg 11/02/20 09:00 11/04/20 08:54 Clopidogrel Bisulfate 75 Mg Tab PO 75 mg DAILY REGINA Administration Diphenoxylate HCl/Atropine 1 tab 11/02/20 08:56 11/04/20 09:10 Diphenoxylate Hcl/Atropine Tablet PO 1 tab QID PRN Administration Diarrhea/Loose Stools Enoxaparin Sodium 40 mg 11/02/20 09:00 11/04/20 08:55 Enoxaparin Sodium 40 Mg/0.4 Ml Syringe SC 40 mg 0900 REGINA Administration Escitalopram Oxalate 10 mg 11/02/20 09:00 11/04/20 08:53 Escitalopram Oxalate 10 Mg Tablet PO 10 mg DAILY REGINA Administration Fenofibrate 48 mg 11/01/20 21:00 11/03/20 20:38 Fenofibrate 48 Mg Tab PO 48 mg HS RGEINA Administration Gabapentin 600 mg 11/02/20 09:00 11/04/20 08:54 Gabapentin 300 Mg Cap PO 600 mg BID REGINA Administration Levofloxacin 750 mg/ Device 150 mls @ 100 mls/hr 11/03/20 18:00 11/03/20 17:45 IVPB 150 mls Q2D@1800 REGINA Administration Sodium Chloride 1,000 mls @ 75 mls/hr 11/03/20 12:06 11/04/20 08:48 Normal Saline 0.9% IV 1,000 mls .[id number] REGINA Administration Isosorbide Mononitrate 15 mg 11/02/20 09:00 11/04/20 08:54 Isosorbide Mononitrate Er 30 Mg Tab PO 15 mg DAILY REGINA Administration Levothyroxine Sodium 25 mcg 11/03/20 06:00 11/04/20 05:52 Levothyroxine Sodium 25 Mcg Tab PO 25 mcg 0600 REGINA Administration Liothyronine Sodium 5 mcg 11/03/20 06:00 11/04/20 05:52 Liothyronine Sodium 5 Mcg Tab PO 5 mcg 0600 REGINA Administration Magnesium Oxide 400 mg 11/02/20 09:00 11/04/20 08:54 Magnesium Oxide 400 Mg Tab PO 400 mg BID REGINA Administration Melatonin 6 mg 11/03/20 22:23 11/03/20 23:44 Melatonin 3 Mg Tab PO 6 mg HS PRN Administration Insomnia Meloxicam 15 mg 11/02/20 09:00 11/04/20 09:19 Meloxicam 15 Mg Tab PO 15 mg DAILY REGINA Administration Methocarbamol 750 mg 11/02/20 09:22 11/03/20 02:52 Methocarbamol 500 Mg Tab PO 750 mg Q8H PRN Administration Muscle Pain Multivitamins/Zinc 1 tab 11/02/20 09:00 11/04/20 08:54 Stress 600 With Zinc 1 Tab PO 1 tab DAILY REGINA Administration Ondansetron HCl 4 mg 11/01/20 20:00 11/04/20 08:48 Ondansetron Pf 4 Mg/2 Ml Vial IVP 4 mg Q6H PRN Administration Nausea/Vomiting Potassium Chloride 20 meq 11/02/20 17:00 11/04/20 08:51 Potassium Chloride 20 Meq Tab PO 20 meq BID-WM REGINA Administration Zinc Oxide 0 gm 11/02/20 14:00 11/04/20 05:52 Zinc Oxide 20% Oint 30 Gm Tube TOP 1 applic Q8HR REGINA Administration - Exam Neck: negative: supple, symmetric, no JVD, no thyromegaly, no lymphadenopathy, no carotid bruit, JVD Heart: negative: RRR, no murmur, no gallops, no rubs, normal peripheral pulses, irregular, diminshed peripheral pulses, murmur present, II/IV, III/IV Respiratory: negative: CTAB, no wheezes, no rales, no ronchi, normal chest expansion, no tachypnea, normal percussion, rales, rhonchi, tachypneic, wheezes Gastrointestinal: negative: soft, non-tender, non-distended, normal bowel sounds, no palpable masses, no hepatomegaly, no splenomegaly, no bruit, no guarding, no rigidity, tender to palpation, distended, diminished bowl sounds, voluntary guarding Hosp A/P - Plan (1) Sepsis due to urinary tract infection Code(s): A41.9 - SEPSIS, UNSPECIFIED ORGANISM; N39.0 - URINARY TRACT INFECTION, SITE NOT SPECIFIED Status: Acute Plan: Resolving, continue Levaquin for Klebsiella spp UTI (2) HANNA (acute kidney injury) Code(s): N17.9 - ACUTE KIDNEY FAILURE, UNSPECIFIED Status: Acute Plan: Resolving, avoid nephrotoxic meds and limit contrast (3) Acute metabolic encephalopathy Code(s): G93.41 - METABOLIC ENCEPHALOPATHY Status: Acute Plan: Resolving (4) Hypercalcemia Code(s): E83.52 - HYPERCALCEMIA Status: Acute Plan: Resolving (5) Hypothyroid Code(s): E03.9 - HYPOTHYROIDISM, UNSPECIFIED Status: Chronic - Plan continue antibiotics, social worker assistant, DVT proph w/SCDs Stable currently Continue Levaquin D/C Rocephin Continue IVF NS @ 75ml/h Resume home meds AM lab: BMP, CBC Likely d/c on 11/04/2011/04 will speak with case folder to see if we can discharge patient back to the nursing facility today. Her C. difficile is negative. She is continues to have diarrhea. Probiotic has been added. We will continue Imodium. She has been eating we will stop IV fluids. She currently is on Levaquin we will continue that. Urine cultures indicated Klebsiella.
[2020-11-04] MEDS: Artificial Tear Sol 15 ML BOT EA EYE SCH ×2 (14:58→20:00)
[2020-11-04] MEDS: Methocarbamol 500 MG TAB PO PRN (16:35)
[2020-11-04] MEDS: Atorvastatin Calcium 40 MG TAB PO SCH (20:00)
[2020-11-04] MEDS: Melatonin 3 MG TAB PO PRN (20:00)
[2020-11-04] MEDS: Fenofibrate 48 MG TAB PO SCH (20:00)
[2020-11-04] MEDS: Acetaminophen 325 MG TAB PO PRN (21:03)
[2020-11-05] MEDS: Liothyronine Sodium 5 MCG TAB PO SCH (05:39)
[2020-11-05] MEDS: Zinc Oxide 20% Oint 30 GM TUBE TOP SCH ×2 (05:39→15:51)
[2020-11-05] MEDS: Levothyroxine Sodium 25 MCG TAB PO SCH (05:39)
[2020-11-05 08:08] VITALS: BP 123/60; TEMP 98.9
[2020-11-05] MEDS: Artificial Tear Sol 15 ML BOT EA EYE SCH (08:49)
[2020-11-05] MEDS: Potassium Chloride 20 MEQ TAB PO SCH ×2 (08:49→16:01)
[2020-11-05] MEDS: Cholecalciferol 1,000 UNITS (25 MCG) TAB PO SCH (08:51)
[2020-11-05] MEDS: Clopidogrel Bisulfate 75 MG TAB PO SCH (08:51)
[2020-11-05] MEDS: Enoxaparin Sodium 40 MG/0.4 ML SYRINGE SC SCH (08:51)
[2020-11-05] MEDS: Escitalopram Oxalate 10 mg Tablet PO SCH (08:52)
[2020-11-05] MEDS: Gabapentin 300 MG CAP PO SCH (08:52)
[2020-11-05] MEDS: Lactinex Tablet PO SCH (08:54)
[2020-11-05] MEDS: Stress 600 With Zinc 1 TAB PO SCH (08:54)
[2020-11-05] MEDS: Magnesium Oxide 400 MG TAB PO SCH (08:54)
[2020-11-05] MEDS ORDERED: Saccharomyces boulardii 250 MG CAP PO SCH (09:00)
[2020-11-05] MEDS ORDERED: Konsyl 6 gm Packet PO SCH (10:00)
[2020-11-05] MEDS ORDERED: Metamucil PACK PO SCH ×2 (11:00→13:45)
--- NOTE | 2020-11-05 17:31 | PDOC.DS.DS ---
Provider - Provider Date of Admission: 11/02/20 08:24 Date of Discharge: 11/05/20 Admitting Provider: Kirby Shah Consultations: Urology Primary Care Physician: Adan Mistry Course - Hospital Course Hospital Course: Patient is a very pleasant 80-year-old longterm resident who comes into the hospital with complaints of nausea vomiting. She also has some change in mental status. Patient was noted to have UTI cultures indicated Klebsiella. Patient was seen by urology had a catheter reinserted. Patient will be discharged back to nursing care facility with a catheter she will follow up with urology as outpatient. Initially patient's creatinine was elevated due to bilateral hydronephrosis which has resolved. Her creatinine is back to baseline. Resuscitation Status: 11/01/20 20:00 Resuscitation Status Routine Resuscitation Status: FULL: Full Resuscitation - Labs Lab Results: 11/04/20 03:48 11/04/20 03:48 Abnormal Lab Results - Last 48 hrs 11/04/20 03:48: Potassium 3.4 L, Chloride 113 H, Carbon Dioxide 15 L, BUN 8 L 11/04/20 03:48: RBC 3.08 L, Hgb 8.4 L, Hct 25.6 L, Plt Count 406 H, MPV 6.5 L, Lymphocytes % 17.8 L, Monocytes # 0.7 H Microbiology - Entire Visit 11/01/20 20:15 Venous blood - Left Hand Blood Culture - Preliminary NO GROWTH AT 48 HOURS 11/01/20 20:02 Venous blood - Left Arm Blood Culture - Preliminary NO GROWTH AT 48 HOURS 11/01/20 17:56 Urine Straight Catheter Urine Culture - Final Klebsiella pneumoniae ssp pneu 11/02/20 19:48 Stool C. difficile GDH Antigen & Toxins - Final - Physical Exam Vitals: Vital Signs (12 hours) Temp Pulse Resp BP Pulse Ox 11/05/20 08:05 95 11/05/20 08:00 98.9 F 83 16 123/60 95 Weight Admit Weight 124 lb Weight 124 lb Physical Exam: The patient was seen and examined on the day of discharge. Problem - Discharge Plan Assessment: Sepsis due to urinary tract infection #2 HANNA #3 acute metabolic encephalopathy #4 hyperglycemia #5 UTI #6 hypothyroid plan Plan - Discharge Medications Prescriptions: Saccharomyces Boulardii [Florastor] 250 mg PO DAILY #30 capsule Levofloxacin [Levaquin] 500 mg PO DAILY #10 tab Home Medications: Medication Instructions Recorded Confirmed Type Fenofibrate [Tricor] 48 mg PO HS 07/18/20 11/02/20 History Gabapentin 600 mg PO QID 07/18/20 11/02/20 History Zinc Oxide [Zinc Oxide Ointment] 1 applic TOP ASDIR PRN 07/18/20 11/02/20 History Atorvastatin Calcium [Lipitor] 40 mg PO HS tab 08/02/20 11/02/20 Rx Clopidogrel Bisulfate [Plavix] 75 mg PO DAILY tab 08/02/20 11/02/20 Rx Furosemide [Lasix] 20 mg PO 0900,1400 tab 08/02/20 11/02/20 Rx Magnesium Oxide 400 mg PO BID tab 08/02/20 11/02/20 Rx Potassium Chloride [K-Dur] 20 meq PO BID-WM tab 08/02/20 11/02/20 Rx Escitalopram Oxalate [Lexapro] 10 mg PO DAILY 09/23/20 11/02/20 History Melatonin/Pyridoxine [Melatonin 5 20 mg PO HS 09/23/20 11/02/20 History mg Tablet] Psyllium Seed (With Sugar) 1 pk PO DAILY pk 09/25/20 11/02/20 Rx [Metamucil Packet] Acetaminophen [Tylenol Extra 1,000 mg PO Q6HR PRN 11/02/20 11/02/20 History Strength] Benzonatate [Tessalon] 100 mg PO TID PRN 11/02/20 11/02/20 History Bisacodyl [Bisac-Evac] 10 mg MI DAILY PRN 11/02/20 11/02/20 History Carboxymethylcellulose Sodium 1 drop EA EYE BID 11/02/20 11/02/20 History [Refresh Tears] Cholecalciferol (Vitamin D3) 125 mcg PO DAILY 11/02/20 11/02/20 History [Vitamin D3] Diphenoxylate HCl/Atropine 1 tab PO QID PRN 11/02/20 11/02/20 History [Lomotil] Isosorbide Mononitrate 15 mg PO DAILY 11/02/20 11/02/20 History Lactobacillus [Floranex] 1 tab PO DAILY 11/02/20 11/02/20 History Levothyroxine Sodium [Synthroid] 25 mcg PO 0600 11/02/20 11/02/20 History Lidocaine [Salonpas] 1 each TP DAILY 11/02/20 11/02/20 History Liothyronine Sodium [Cytomel] 5 mcg PO DAILY 11/02/20 11/02/20 History Methocarbamol [Robaxin-750] 750 mg PO Q8H PRN 11/02/20 11/02/20 History Ondansetron HCl [Zofran] 4 mg PO Q6HR PRN 11/02/20 11/02/20 History Vitamin B Complex 1 cap PO DAILY 11/02/20 11/02/20 History Levofloxacin [Levaquin] 500 mg PO DAILY #10 tab 11/05/20 Rx Saccharomyces Boulardii [Florastor] 250 mg PO DAILY #30 capsule 11/05/20 Rx Allergies: orange Allergy (Intermediate, Verified 11/02/20 05:30) Rash orange juice Allergy (Intermediate, Verified 11/02/20 05:30) Rash adhesive tape Allergy (Verified 11/02/20 05:30) aspirin Allergy (Verified 11/02/20 05:30) PER ER PROFILE chlorhexidine Allergy (Verified 11/02/20 05:30) PER ER PROFILE [place] And Derivatives Allergy (Verified 11/02/20 05:30) codeine Allergy (Verified 11/02/20 05:30) PER ER PROFILE doxycycline Allergy (Verified 11/02/20 05:30) PER ER PROFILE indomethacin Allergy (Verified 11/02/20 05:30) PER ER PROFILE morphine Allergy (Verified 11/02/20 05:30) PER ER PROFILE penicillin G Allergy (Verified 11/02/20 05:30) PER ER PROFILE sulfadiazine Allergy (Verified 11/02/20 05:30) PER OK PAPERWORK - Discharge Instructions Activity:: Activity as Tolerated Nourishment:: Heart Healthy Diet Therapies:: Physical Therapy - Follow up Plan Referrals: Adan Mistry MD [Primary Care Provider] - Disposition: HOME Quality - Care Measures CORE MEASURES:: N/A
[2020-11-06] MEDS ORDERED: Metamucil PACK PO SCH ×2 (09:00)
== END 2020-11-05 19:00 | DRG 871 ==
LOC: ERS 16:46 → ONC 19:47 → OBSVTOIN 11-02 08:24
PROVIDERS: ADMIT Internal Medicine; ATTEND Internal Medicine
DX: A41.89 Other specified sepsis (principal); G93.41 Metabolic encephalopathy; I21.A1 Myocardial infarction type 2; N17.9 Acute kidney failure, unspecified; N13.6 Pyonephrosis; I48.91 Unspecified atrial fibrillation; E03.9 Hypothyroidism, unspecified; E78.5 Hyperlipidemia, unspecified; F03.90 Unspecified dementia, unspecified severity, without behavioral disturbance, psychotic disturbance, mood disturbance, and anxiety; K21.9 Gastro-esophageal reflux disease without esophagitis; J44.9 Chronic obstructive pulmonary disease, unspecified; N18.9 Chronic kidney disease, unspecified; I12.9 Hypertensive chronic kidney disease with stage 1 through stage 4 chronic kidney disease, or unspecified chronic kidney disease; I25.10 Atherosclerotic heart disease of native coronary artery without angina pectoris; Z96.643 Presence of artificial hip joint, bilateral; Z96.653 Presence of artificial knee joint, bilateral; E86.0 Dehydration; Z96.611 Presence of right artificial shoulder joint; Z96.612 Presence of left artificial shoulder joint; E83.52 Hypercalcemia; B96.1 Klebsiella pneumoniae [K. pneumoniae] as the cause of diseases classified elsewhere; R73.9 Hyperglycemia, unspecified; Z90.49 Acquired absence of other specified parts of digestive tract; Z90.710 Acquired absence of both cervix and uterus; Z95.0 Presence of cardiac pacemaker; Z88.6 Allergy status to analgesic agent; Z88.8 Allergy status to other drugs, medicaments and biological substances; Z88.0 Allergy status to penicillin; Z88.2 Allergy status to sulfonamides; Z79.899 Other long term (current) drug therapy; Z79.890 Hormone replacement therapy; Z79.01 Long term (current) use of anticoagulants; Z91.018 Allergy to other foods; Z87.891 Personal history of nicotine dependence; Z91.048 Other nonmedicinal substance allergy status; Z20.822 Contact with and (suspected) exposure to COVID-19
CPT/HCPCS: 36415; 51701; 70450; 71045; 74177; 80048; 80053; 81003; 81015; 83605; 83690; 84484; 85007; 85025; 85027; 87040; 87077; 87086; 87186; 87324; 87449; 87635; 93005; 96365; 96366; 96375; 96376; G0378; J0696; J1650; J1956; J2270; J2405; J3010; J3490; Q0162; Q9967; U0003

== ENCOUNTER 2023-08-23 17:19 | Inpatient (IN) | payer MEDICARE, OTHER ==
[2023-08-23 18:14] LABS: #Monocytes 0.7 thou/uL (0.11-0.59); #Neutrophils 5.7 thou/uL (1.40-6.50); %Basophils 0.4 % (0.0-1.0); %Eosinophils 0.1 % (0.0-10.0); %Monocytes 9.8 % (0.0-10.0); %Neutrophils 77.6 % (42.0-75.0); Hematocrit 38.5 % (36.0-47.0); Hemoglobin 12.7 g/dL (12.0-16.0); Mean Corpuscular Hemoglobin 29.9 pg (27.0-31.0); Mean Corpuscular Volume 90.6 fl (78.0-98.0); Mean Platelet Volume 9.5 fL (7.4-10.4); Platelet Count 180 10x3/uL (130-400); RBC Distribution Width 14.3 % (11.5-14.5); Red Blood Cell (RBC) Count 4.25 mill/uL (4.20-5.40); White Blood Cell (WBC) Count 7.3 10x3/uL (4.8-10.8)
[2023-08-23 18:40] LABS: ALT (SGPT) 11 U/L (8-55); AST (SGOT) 17 U/L (5-34); Albumin 3.9 g/dL (3.4-4.8); Alkaline Phosphatase 77 U/L (40-110); Anion Gap 17 mmol/L (10-20); BUN (Urea Nitrogen) 15 mg/dL (9.8-20.1); Bilirubin, Total 0.6 mg/dL (0.2-1.2); Calc. Creatinine Clearance 0 mL/min (70-130); Calcium 9.3 mg/dL (7.8-10.44); Carbon Dioxide 17 mmol/L (23-31); Chloride 110 mmol/L (98-107); Estimated GFR 55; Globulin 2.5 g/dL (2.4-3.5); Glucose 89 mg/dL (83-110); Lipase 15 U/L (8-78); Potassium 3.8 mmol/L (3.5-5.1); Protein, Total 6.4 g/dL (5.8-8.1); Sodium 140 mmol/L (136-145); Troponin I 0.024 ng/mL (< 0.028)
[2023-08-23 18:48] LABS: Bacteria/HPF None Seen HPF (None Seen); Bilirubin Negative (Negative); Blood, Urine 2+ (Negative); CAUTI Indications for Culture Dysuria,urgency,freq; Clarity Clear (Clear); Glucose, Urine (Dipstick) Normal (Negative); Ketone, Urine Negative (Negative); Leukocyte 75 Leu/uL (Negative); Nitrite Negative (Negative); Protein, Urine (Dipstick) 20 mg/dL (Neg-Trace); RBC/HPF 21-50 HPF (0-3); Specific Gravity, Urine 1.043 (1.002-1.036); Squamous Epithelial 0-3 HPF (0-3); Urobilinogen Normal mg/dL (Less than 2); WBC/HPF 21-50 HPF (0-3)
[2023-08-23 18:51] LABS: Urine Culture Reflex Yes Yes
[2023-08-23] MEDS ORDERED: Clopidogrel Bisulfate 300 MG TAB PO SCH (19:15)
[2023-08-23 23:21] LABS: Troponin I 0.024 ng/mL (< 0.028)
[2023-08-24] MEDS ORDERED: Ondansetron ODT 4 MG TAB PO PRN (00:31)
[2023-08-24] MEDS ORDERED: Ondansetron PF 4 MG/2 ML Vial IVP PRN (00:31)
[2023-08-24 02:42] LABS: #Eosinphils 0.1 thou/uL (0.0-0.7); #Monocytes 0.6 thou/uL (0.11-0.59); #Neutrophils 5.4 thou/uL (1.40-6.50); %Basophils 0.4 % (0.0-1.0); %Eosinophils 1.3 % (0.0-10.0); %Lymphocytes 12.7 % (21.0-51.0); %Neutrophils 76.2 % (42.0-75.0); Hemoglobin 11.6 g/dL (12.0-16.0); Mean Corpuscular HGB CONC 33.1 g/dL (32.0-36.0); Mean Corpuscular Hemoglobin 29.5 pg (27.0-31.0); Mean Corpuscular Volume 89.1 fl (78.0-98.0); Mean Platelet Volume 9.3 fL (7.4-10.4); Platelet Count 170 10x3/uL (130-400); RBC Distribution Width 14.3 % (11.5-14.5); Red Blood Cell (RBC) Count 3.93 mill/uL (4.20-5.40); White Blood Cell (WBC) Count 7.1 10x3/uL (4.8-10.8)
[2023-08-24 03:12] LABS: Troponin I 0.034 ng/mL (< 0.028)
[2023-08-24 03:31] LABS: Anion Gap 17 mmol/L (10-20); BUN (Urea Nitrogen) 13 mg/dL (9.8-20.1); Calc. Creatinine Clearance 0 mL/min (70-130); Calcium 8.7 mg/dL (7.8-10.44); Carbon Dioxide 16 mmol/L (23-31); Chloride 110 mmol/L (98-107); Estimated GFR 66; Glucose 90 mg/dL (83-110); Sodium 139 mmol/L (136-145)
[2023-08-24] MEDS ORDERED: LORazepam 2 MG/ML SYR.(CARPUJECT) ONE (05:14)
[2023-08-24] MEDS ORDERED: Lorazepam 2 MG/ML VIAL SLOW IVP SCH (05:15)
[2023-08-24] MEDS ORDERED: Diphenoxylate HCl/Atropine Tablet PO PRN (06:59)
[2023-08-24] MEDS ORDERED: Loperamide HCl 2 MG CAP PO PRN (06:59)
[2023-08-24] MEDS ORDERED: Acetaminophen 325 MG TAB PO PRN (07:11)
[2023-08-24] MEDS ORDERED: CARBOXYMETHYLCELLULOSE SODIUM EA EYE PRN (07:29)
[2023-08-24] MEDS ORDERED: Clopidogrel Bisulfate 75 MG TAB ONE (08:48)
[2023-08-24] MEDS ORDERED: Gabapentin 300 MG CAP ONE (08:49)
[2023-08-24] MEDS ORDERED: Gabapentin 300 MG CAP PO SCH (09:00)
[2023-08-24] MEDS ORDERED: cefTRIAXone (ROCEPHIN) 1 GM VIAL ONE (09:32)
[2023-08-24] MEDS ORDERED: Sodium Chloride 0.9% 100 ML ONE (09:36)
[2023-08-24] MEDS: Ferrous Sulfate 325 MG TAB PO SCH (09:51)
[2023-08-24] MEDS: BuPROPion XL 150 MG ER.TAB PO SCH (09:52)
[2023-08-24] MEDS: Clopidogrel Bisulfate 75 MG TAB PO SCH (09:53)
[2023-08-24] MEDS: Escitalopram Oxalate 20 mg Tablet PO SCH (09:55)
[2023-08-24] MEDS: Gabapentin 300 MG CAP PO SCH ×3 (09:56→21:01)
[2023-08-24] MEDS: Magnesium Oxide 400 MG TAB PO SCH (09:58)
[2023-08-24] MEDS: Oxybutynin 5 MG TAB PO SCH ×2 (09:59→21:02)
[2023-08-24] MEDS: Saccharomyces boulardii 250 MG CAP PO SCH (09:59)
[2023-08-24] MEDS: Sodium Bicarbonate Tab 325 MG TAB PO SCH ×2 (10:01→21:02)
[2023-08-24] MEDS: cefTRIAXone\\ROCEPHIN 1 GM in Sodium Chloride 0.9% 100 ML IVPB SCH (10:05)
[2023-08-24] MEDS: Metamucil PACK PO SCH (10:45)
[2023-08-24] MEDS: Cholecalciferol 1,000 UNITS (25 MCG) TAB PO SCH (11:42)
[2023-08-24] MEDS: Melatonin 3 MG TAB PO SCH (21:02)
[2023-08-24] MEDS: traMADol HCl 50 MG TAB PO PRN (21:02)
[2023-08-24] MEDS: Methocarbamol 500 MG TAB PO SCH (21:02)
[2023-08-25] MEDS: traMADol HCl 50 MG TAB PO PRN ×2 (00:54→06:16)
[2023-08-25] MEDS: Melatonin 3 MG TAB PO SCH ×2 (01:11→21:29)
[2023-08-25] MEDS: Sodium Bicarbonate Tab 325 MG TAB PO SCH ×4 (01:11→21:52)
[2023-08-25] MEDS: Oxybutynin 5 MG TAB PO SCH ×4 (01:11→21:52)
[2023-08-25] MEDS: Gabapentin 300 MG CAP PO SCH ×5 (01:11→21:52)
[2023-08-25] MEDS: Methocarbamol 500 MG TAB PO SCH ×3 (01:11→21:52)
[2023-08-25] MEDS ORDERED: OLANZapine 10 MG VIAL IM SCH ×2 (01:45→23:45)
[2023-08-25] MEDS ORDERED: Sterile Water 10 ML VIAL FS PRN (01:45)
[2023-08-25] MEDS ORDERED: Melatonin 3 MG TAB PO SCH (02:15)
[2023-08-25] MEDS ORDERED: Methocarbamol 500 MG TAB PO SCH (02:15)
[2023-08-25 04:56] LABS: #Eosinphils 0.2 thou/uL (0.0-0.7); #Monocytes 0.9 thou/uL (0.11-0.59); #Neutrophils 6.1 thou/uL (1.40-6.50); %Basophils 0.4 % (0.0-1.0); %Eosinophils 2.5 % (0.0-10.0); %Lymphocytes 13.4 % (21.0-51.0); %Monocytes 10.5 % (0.0-10.0); %Neutrophils 72.8 % (42.0-75.0); Hematocrit 36.2 % (36.0-47.0); Hemoglobin 11.7 g/dL (12.0-16.0); Mean Corpuscular HGB CONC 32.3 g/dL (32.0-36.0); Mean Corpuscular Hemoglobin 29.1 pg (27.0-31.0); Mean Platelet Volume 9.5 fL (7.4-10.4); Platelet Count 187 10x3/uL (130-400); RBC Distribution Width 14.1 % (11.5-14.5); Red Blood Cell (RBC) Count 4.02 mill/uL (4.20-5.40); White Blood Cell (WBC) Count 8.3 10x3/uL (4.8-10.8)
[2023-08-25 05:30] LABS: Anion Gap 17 mmol/L (10-20); BUN (Urea Nitrogen) 16 mg/dL (9.8-20.1); Calc. Creatinine Clearance 48 mL/min (70-130); Calcium 9.1 mg/dL (7.8-10.44); Carbon Dioxide 17 mmol/L (23-31); Chloride 108 mmol/L (98-107); Estimated GFR 67; Glucose 65 mg/dL (83-110); Potassium 3.4 mmol/L (3.5-5.1); Sodium 139 mmol/L (136-145)
[2023-08-25] MEDS: Levothyroxine Sodium 25 MCG TAB PO SCH (06:17)
[2023-08-25] MEDS: Saccharomyces boulardii 250 MG CAP PO SCH (08:48)
[2023-08-25] MEDS: Magnesium Oxide 400 MG TAB PO SCH (08:49)
[2023-08-25] MEDS: Metamucil PACK PO SCH (08:49)
[2023-08-25] MEDS: Cholecalciferol 1,000 UNITS (25 MCG) TAB PO SCH (08:49)
[2023-08-25] MEDS: Clopidogrel Bisulfate 75 MG TAB PO SCH (08:50)
[2023-08-25] MEDS: Escitalopram Oxalate 20 mg Tablet PO SCH (08:50)
[2023-08-25] MEDS: Potassium Chloride 20 MEQ in Premix 1 BAG IVPB SCH ×2 (08:52→13:49)
[2023-08-25] MEDS: Vancomycin 1 GM in Premix 1 BAG IVPB SCH (08:52)
[2023-08-25] MEDS: BuPROPion XL 150 MG ER.TAB PO SCH (11:10)
[2023-08-25] MEDS: Ferrous Sulfate 325 MG TAB PO SCH (11:10)
[2023-08-25 11:13] LABS: Magnesium 1.7 mg/dL (1.6-2.6)
[2023-08-25] MEDS: cefTRIAXone\\ROCEPHIN 1 GM in Sodium Chloride 0.9% 100 ML IVPB SCH (13:48)
[2023-08-25] MEDS: hydrALAZINE 20 MG/ML VIAL SLOW IVP PRN ×2 (21:36→23:40)
[2023-08-25] MEDS: Dextrose 5%-Lactated Ringers 1,000 ML IV SCH (21:50)
[2023-08-25] MEDS ORDERED: Losartan 25 MG TAB PO SCH (23:45)
[2023-08-26] MEDS: Levothyroxine Sodium 25 MCG TAB PO SCH (05:48)
[2023-08-26 07:39] LABS: #Basophils 0.1 thou/uL (0.0-0.2); #Eosinphils 0.2 thou/uL (0.0-0.7); #Monocytes 1.2 thou/uL (0.11-0.59); #Neutrophils 7.6 thou/uL (1.40-6.50); %Basophils 0.5 % (0.0-1.0); %Eosinophils 2.4 % (0.0-10.0); %Lymphocytes 10.5 % (21.0-51.0); %Monocytes 11.8 % (0.0-10.0); %Neutrophils 74.5 % (42.0-75.0); Hematocrit 41.6 % (36.0-47.0); Hemoglobin 13.4 g/dL (12.0-16.0); Mean Corpuscular HGB CONC 32.2 g/dL (32.0-36.0); Mean Corpuscular Hemoglobin 29.1 pg (27.0-31.0); Mean Corpuscular Volume 90.4 fl (78.0-98.0); Mean Platelet Volume 9.2 fL (7.4-10.4); Platelet Count 223 10x3/uL (130-400); White Blood Cell (WBC) Count 10.2 10x3/uL (4.8-10.8)
[2023-08-26 08:04] LABS: Anion Gap 17 mmol/L (10-20); BUN (Urea Nitrogen) 13 mg/dL (9.8-20.1); Calc. Creatinine Clearance 48 mL/min (70-130); Calcium 9.7 mg/dL (7.8-10.44); Carbon Dioxide 19 mmol/L (23-31); Chloride 110 mmol/L (98-107); Estimated GFR 67; Glucose 87 mg/dL (83-110); Potassium 3.5 mmol/L (3.5-5.1); Sodium 142 mmol/L (136-145)
[2023-08-26] MEDS ORDERED: Losartan 25 MG TAB PO SCH ×3 (09:00→12:15)
[2023-08-26] MEDS: Vancomycin 1 GM in Premix 1 BAG IVPB SCH (09:12)
[2023-08-26] MEDS: Gabapentin 300 MG CAP PO SCH ×3 (09:13→22:10)
[2023-08-26] MEDS: Saccharomyces boulardii 250 MG CAP PO SCH (09:13)
[2023-08-26] MEDS: Cholecalciferol 1,000 UNITS (25 MCG) TAB PO SCH (09:14)
[2023-08-26] MEDS: Oxybutynin 5 MG TAB PO SCH ×2 (09:14→22:10)
[2023-08-26] MEDS: Ferrous Sulfate 325 MG TAB PO SCH (09:14)
[2023-08-26] MEDS: Escitalopram Oxalate 20 mg Tablet PO SCH (09:14)
[2023-08-26] MEDS: Magnesium Oxide 400 MG TAB PO SCH (09:16)
[2023-08-26] MEDS: BuPROPion XL 150 MG ER.TAB PO SCH (09:16)
[2023-08-26] MEDS: Sodium Bicarbonate Tab 325 MG TAB PO SCH ×2 (09:16→22:09)
[2023-08-26] MEDS: Metamucil PACK PO SCH (09:16)
[2023-08-26] MEDS: Clopidogrel Bisulfate 75 MG TAB PO SCH (09:16)
[2023-08-26] MEDS: cefTRIAXone\\ROCEPHIN 1 GM in Sodium Chloride 0.9% 100 ML IVPB SCH (10:31)
[2023-08-26] MEDS: Dextrose 5%-Lactated Ringers 1,000 ML IV SCH ×2 (15:18→22:18)
[2023-08-26] MEDS: Methocarbamol 500 MG TAB PO SCH (22:10)
[2023-08-26] MEDS: Melatonin 3 MG TAB PO SCH (22:10)
[2023-08-27] MEDS: Levothyroxine Sodium 25 MCG TAB PO SCH (06:06)
[2023-08-27 06:55] LABS: #Eosinphils 0.5 thou/uL (0.0-0.7); #Monocytes 1.2 thou/uL (0.11-0.59); #Neutrophils 4.9 thou/uL (1.40-6.50); %Basophils 0.5 % (0.0-1.0); %Eosinophils 6.1 % (0.0-10.0); %Lymphocytes 15.4 % (21.0-51.0); %Monocytes 15.5 % (0.0-10.0); %Neutrophils 62.1 % (42.0-75.0); Hematocrit 37.9 % (36.0-47.0); Hemoglobin 12.4 g/dL (12.0-16.0); Mean Corpuscular HGB CONC 32.7 g/dL (32.0-36.0); Mean Corpuscular Hemoglobin 29.6 pg (27.0-31.0); Mean Corpuscular Volume 90.5 fl (78.0-98.0); Mean Platelet Volume 9.5 fL (7.4-10.4); Platelet Count 202 10x3/uL (130-400); RBC Distribution Width 14.2 % (11.5-14.5); Red Blood Cell (RBC) Count 4.19 mill/uL (4.20-5.40); White Blood Cell (WBC) Count 7.9 10x3/uL (4.8-10.8)
[2023-08-27 07:21] LABS: Anion Gap 12 mmol/L (10-20); BUN (Urea Nitrogen) 8 mg/dL (9.8-20.1); Calc. Creatinine Clearance 44 mL/min (70-130); Calcium 9.2 mg/dL (7.8-10.44); Carbon Dioxide 23 mmol/L (23-31); Chloride 108 mmol/L (98-107); Estimated GFR 61; Glucose 96 mg/dL (83-110); Potassium 3.1 mmol/L (3.5-5.1); Sodium 140 mmol/L (136-145)
[2023-08-27] MEDS ORDERED: Potassium Chloride 20 MEQ TAB PO SCH (07:45)
[2023-08-27 08:20] LABS: Magnesium 1.6 mg/dL (1.6-2.6)
[2023-08-27 09:17] LABS: Vancomycin, Trough 9.6 ug/mL
[2023-08-27] MEDS: Sodium Bicarbonate Tab 325 MG TAB PO SCH ×2 (09:17→20:17)
[2023-08-27] MEDS: Metamucil PACK PO SCH (09:17)
[2023-08-27] MEDS: Escitalopram Oxalate 20 mg Tablet PO SCH (09:18)
[2023-08-27] MEDS: Magnesium Oxide 400 MG TAB PO SCH (09:18)
[2023-08-27] MEDS: Ferrous Sulfate 325 MG TAB PO SCH (09:18)
[2023-08-27] MEDS: Losartan 25 MG TAB PO SCH (09:18)
[2023-08-27] MEDS: BuPROPion XL 150 MG ER.TAB PO SCH (09:18)
[2023-08-27] MEDS: Saccharomyces boulardii 250 MG CAP PO SCH (09:18)
[2023-08-27] MEDS: Cholecalciferol 1,000 UNITS (25 MCG) TAB PO SCH (09:18)
[2023-08-27] MEDS: Clopidogrel Bisulfate 75 MG TAB PO SCH (09:18)
[2023-08-27] MEDS: Gabapentin 300 MG CAP PO SCH ×3 (09:19→20:15)
[2023-08-27] MEDS: Vancomycin 1 GM in Premix 1 BAG IVPB SCH (09:23)
[2023-08-27] MEDS: cefTRIAXone\\ROCEPHIN 1 GM in Sodium Chloride 0.9% 100 ML IVPB SCH (09:49)
[2023-08-27] MEDS: Oxybutynin 5 MG TAB PO SCH ×2 (11:17→20:18)
[2023-08-27] MEDS ORDERED: FLU VACC QS2023(65UP)/MF59C/PF 60 MCG/0.5 ML SYRINGE IM ONE (18:00)
[2023-08-27] MEDS: Methocarbamol 500 MG TAB PO SCH (20:16)
[2023-08-27] MEDS: Melatonin 3 MG TAB PO SCH (20:16)
[2023-08-27] MEDS: Vancomycin HCl 500 MG in Sodium Chloride 0.9% 100 ML IVPB SCH (22:40)
[2023-08-28] MEDS: Levothyroxine Sodium 25 MCG TAB PO SCH (05:21)
[2023-08-28 06:42] LABS: #Eosinphils 0.4 thou/uL (0.0-0.7); #Monocytes 1.1 thou/uL (0.11-0.59); #Neutrophils 3.7 thou/uL (1.40-6.50); %Basophils 0.5 % (0.0-1.0); %Eosinophils 6.5 % (0.0-10.0); %Lymphocytes 16.5 % (21.0-51.0); %Monocytes 16.9 % (0.0-10.0); %Neutrophils 59.1 % (42.0-75.0); Hematocrit 35.9 % (36.0-47.0); Hemoglobin 11.5 g/dL (12.0-16.0); Mean Corpuscular Hemoglobin 29.3 pg (27.0-31.0); Mean Corpuscular Volume 91.3 fl (78.0-98.0); Mean Platelet Volume 9.7 fL (7.4-10.4); Platelet Count 182 10x3/uL (130-400); RBC Distribution Width 14.3 % (11.5-14.5); Red Blood Cell (RBC) Count 3.93 mill/uL (4.20-5.40); White Blood Cell (WBC) Count 6.3 10x3/uL (4.8-10.8)
[2023-08-28 07:11] LABS: Anion Gap 10 mmol/L (10-20); BUN (Urea Nitrogen) 12 mg/dL (9.8-20.1); Calc. Creatinine Clearance 42 mL/min (70-130); Carbon Dioxide 24 mmol/L (23-31); Chloride 110 mmol/L (98-107); Estimated GFR 57; Glucose 81 mg/dL (83-110); Magnesium 1.7 mg/dL (1.6-2.6); Potassium 3.7 mmol/L (3.5-5.1); Sodium 140 mmol/L (136-145)
[2023-08-28] MEDS: Magnesium Oxide 400 MG TAB PO SCH (08:23)
[2023-08-28] MEDS: Losartan 25 MG TAB PO SCH (08:23)
[2023-08-28] MEDS: Saccharomyces boulardii 250 MG CAP PO SCH (08:23)
[2023-08-28] MEDS: Sodium Bicarbonate Tab 325 MG TAB PO SCH ×2 (08:23→20:58)
[2023-08-28] MEDS: Ferrous Sulfate 325 MG TAB PO SCH (08:23)
[2023-08-28] MEDS: Escitalopram Oxalate 20 mg Tablet PO SCH (08:24)
[2023-08-28] MEDS: BuPROPion XL 150 MG ER.TAB PO SCH (08:24)
[2023-08-28] MEDS: Gabapentin 300 MG CAP PO SCH ×3 (08:24→20:55)
[2023-08-28] MEDS: Oxybutynin 5 MG TAB PO SCH ×2 (08:24→20:58)
[2023-08-28] MEDS: Cholecalciferol 1,000 UNITS (25 MCG) TAB PO SCH (08:24)
[2023-08-28] MEDS: cefTRIAXone\\ROCEPHIN 1 GM in Sodium Chloride 0.9% 100 ML IVPB SCH (08:25)
[2023-08-28] MEDS: Clopidogrel Bisulfate 75 MG TAB PO SCH (08:25)
[2023-08-28] MEDS: Metamucil PACK PO SCH (08:25)
[2023-08-28] MEDS ORDERED: Carvedilol 3.125 MG TAB PO SCH (10:56)
[2023-08-28] MEDS: Vancomycin HCl 500 MG in Sodium Chloride 0.9% 100 ML IVPB SCH ×2 (11:48→23:04)
[2023-08-28] MEDS: Carvedilol 3.125 MG TAB PO SCH (17:10)
[2023-08-28] MEDS: Melatonin 3 MG TAB PO SCH (20:56)
[2023-08-28] MEDS: Methocarbamol 500 MG TAB PO SCH (20:57)
[2023-08-29] MEDS: Levothyroxine Sodium 25 MCG TAB PO SCH (05:21)
[2023-08-29 06:19] LABS: Anion Gap 13 mmol/L (10-20); BUN (Urea Nitrogen) 16 mg/dL (9.8-20.1); Calc. Creatinine Clearance 44 mL/min (70-130); Calcium 8.7 mg/dL (7.8-10.44); Carbon Dioxide 21 mmol/L (23-31); Chloride 109 mmol/L (98-107); Estimated GFR 61; Glucose 79 mg/dL (83-110); Potassium 3.8 mmol/L (3.5-5.1); Sodium 139 mmol/L (136-145)
[2023-08-29] MEDS: Gabapentin 300 MG CAP PO SCH ×3 (08:54→20:09)
[2023-08-29] MEDS: Clopidogrel Bisulfate 75 MG TAB PO SCH (08:54)
[2023-08-29] MEDS: BuPROPion XL 150 MG ER.TAB PO SCH (08:54)
[2023-08-29] MEDS: Cholecalciferol 1,000 UNITS (25 MCG) TAB PO SCH (08:54)
[2023-08-29] MEDS: Carvedilol 3.125 MG TAB PO SCH ×2 (08:54→18:28)
[2023-08-29] MEDS: Escitalopram Oxalate 20 mg Tablet PO SCH ×2 (08:54→15:33)
[2023-08-29] MEDS: Ferrous Sulfate 325 MG TAB PO SCH (08:54)
[2023-08-29] MEDS: Magnesium Oxide 400 MG TAB PO SCH (08:55)
[2023-08-29] MEDS: Metamucil PACK PO SCH (08:55)
[2023-08-29] MEDS: Oxybutynin 5 MG TAB PO SCH ×2 (08:55→20:09)
[2023-08-29] MEDS: Saccharomyces boulardii 250 MG CAP PO SCH (08:55)
[2023-08-29] MEDS: Sodium Bicarbonate Tab 325 MG TAB PO SCH ×2 (08:55→20:09)
[2023-08-29] MEDS: Losartan 25 MG TAB PO SCH (08:55)
[2023-08-29 11:31] LABS: Vancomycin, Trough 18.1 ug/mL
[2023-08-29] MEDS: Vancomycin HCl 500 MG in Sodium Chloride 0.9% 100 ML IVPB SCH (12:13)
[2023-08-29] MEDS: traMADol HCl 50 MG TAB PO PRN (12:15)
[2023-08-29 12:26] VITALS: TEMP 98.4
[2023-08-29] MEDS: Methocarbamol 500 MG TAB PO SCH (20:09)
[2023-08-29 21:01] VITALS: BP 144/58
== END 2023-08-29 20:24 | DRG 689 ==
LOC: ERS 17:19 → ERHOLD 08-24 00:08 → 2NO 08-24 16:33 → OBSVTOIN 08-25 10:24 → 2NO 08-25 21:00 → T4-A 08-26 21:41
PROVIDERS: ADMIT Student in an Organized Health Care Education/Training Program; ATTEND Student in an Organized Health Care Education/Training Program
PROC: 02HV33Z Insertion of Infusion Device into Superior Vena Cava, Percutaneous Approach (ICD-10-PCS; principal; 2023-08-29)
PROC: B548ZZA Ultrasonography of Superior Vena Cava, Guidance (ICD-10-PCS; 2023-08-29)
PROC: B5181ZA Fluoroscopy of Superior Vena Cava using Low Osmolar Contrast, Guidance (ICD-10-PCS; 2023-08-29)
DX: N13.6 Pyonephrosis (principal); G93.41 Metabolic encephalopathy; I13.0 Hypertensive heart and chronic kidney disease with heart failure and stage 1 through stage 4 chronic kidney disease, or unspecified chronic kidney disease; I50.22 Chronic systolic (congestive) heart failure; F03.90 Unspecified dementia, unspecified severity, without behavioral disturbance, psychotic disturbance, mood disturbance, and anxiety; N18.9 Chronic kidney disease, unspecified; K21.9 Gastro-esophageal reflux disease without esophagitis; I25.10 Atherosclerotic heart disease of native coronary artery without angina pectoris; J44.9 Chronic obstructive pulmonary disease, unspecified; Z96.653 Presence of artificial knee joint, bilateral; Z96.643 Presence of artificial hip joint, bilateral; Z96.611 Presence of right artificial shoulder joint; Z96.612 Presence of left artificial shoulder joint; E78.5 Hyperlipidemia, unspecified; I48.91 Unspecified atrial fibrillation; M81.0 Age-related osteoporosis without current pathological fracture; R07.89 Other chest pain; E87.6 Hypokalemia; Z90.710 Acquired absence of both cervix and uterus; I25.2 Old myocardial infarction; Z79.899 Other long term (current) drug therapy; Z79.890 Hormone replacement therapy; Z88.8 Allergy status to other drugs, medicaments and biological substances; Z91.048 Other nonmedicinal substance allergy status; Z88.5 Allergy status to narcotic agent; Z90.49 Acquired absence of other specified parts of digestive tract; Z98.890 Other specified postprocedural states
CPT/HCPCS: 36415; 36569; 71045; 71275; 74177; 80048; 80053; 80202; 81001; 83605; 83690; 83735; 83880; 84145; 84484; 85025; 85379; 86140; 87040; 87077; 87086; 87149; 87186; 93005; 93306; 94760; 96372; 96374; 96375; C1751; G0378; J0360; J0696; J1650; J2060; J3370; J3370-JW; J3480; J3490